=== PATIENT | female | born 1975 | race Caucasian/White ===

== ENCOUNTER 2020-02-06 14:08 | Emergency (ER) | payer SELFPAY ==
[2020-02-06] MEDS ORDERED: MORPHINE SULFATE 10 MG/ML INJ IV ONE ×2 (14:34→17:00)
[2020-02-06] MEDS ORDERED: ONDANSETRON HCL INJ/PF 4 MG/2 ML SDV IV ONE ×2 (14:34→16:30)
--- NOTE | 2020-02-06 14:35 | ER Document Report ---
ED Medical Screen (RME) - General Chief Complaint: Back Pain Stated Complaint: BACK PAIN Primary Care Provider: CHRIS CURIEL [Primary Care Provider] - Follow up as needed Notes: Patient is a 44-year-old white female with a history of diabetes who presents to the emergency department the chief complaint of left mid back pain for the past 3 weeks. States the pain came out of nowhere. States it is constant, has radiated once in the past to the opposite side but mostly stays located to its origination point. States she is been seen in the past over the past 3 weeks by another physician who told her this was likely muscle spasms. She states there is no palliating factors. No specific provocative factors noted. Denies any associated urinary symptoms. Denies any nausea or fever. No abdominal pain. No reported family history of aneurysm or other CAD. I have treated and performed a rapid initial assessment of this patient. A comprehensive ED assessment and evaluation of the patient, analysis of test results and completion of medical decision making process will be conducted by additional ED providers. PHYSICAL EXAMINATION: GENERAL: Appears uncomfortable. Alert and oriented x4. Answers questions appropriately - Related Data Allergies/Adverse Reactions: cortisone Allergy (Verified 02/06/20 14:25) Penicillins Allergy (Verified 02/06/20 14:25) Physical Exam - Vital signs Vitals: Temp Pulse Resp BP Pulse Ox 97.8 F 118 H 20 140/89 H 97 02/06/20 14:12 02/06/20 14:12 02/06/20 14:12 02/06/20 14:12 02/06/20 14:12 Course - Vital Signs Vital signs: Temp Pulse Resp BP Pulse Ox 97.8 F 118 H 20 140/89 H 97 02/06/20 14:12 02/06/20 14:12 02/06/20 14:12 02/06/20 14:12 02/06/20 14:12 Doctor's Discharge - Discharge Referrals: CHRIS CURIEL [Primary Care Provider] - Follow up as needed
[2020-02-06 15:07] LABS: ABSOLUTE EOSINOPHILS # (AUTO) 0.1 10^3/uL (0.0-0.6); ABSOLUTE LYMPHOCYTES (AUTO) 1.4 10^3/uL (0.5-4.7); ABSOLUTE MONOCYTES (AUTO) 0.4 10^3/uL (0.1-1.4); ABSOLUTE NEUT (AUTO) 6.3 10^3/uL (1.7-8.2); BASOPHILS % (AUTO) 0.2 % (0-2); EOSINOPHILS % (AUTO) 1.2 % (0-6); HEMOGLOBIN 12.8 g/dL (12.0-15.5); LYMPHOCYTES % (AUTO) 17.3 % (13-45); MEAN CORPUSCULAR HEMOGLOBIN 32.6 pg (27.0-33.4); MEAN CORPUSCULAR HGB CONC 35.4 g/dL (32.0-36.0); MEAN CORPUSCULAR VOLUME 92 fl (80-97); PLATELET COUNT 331 10^3/uL (150-450); RED BLOOD COUNT 3.91 10^6/uL (3.72-5.28); RED CELL DISTRIBUTION WIDTH 12.4 % (11.5-14.0); SEGMENTED NEUTROPHILS % (AUTO) 76.3 % (42-78); TOTAL CELLS COUNTED % (AUTO) 100 %; WHITE BLOOD COUNT 8.2 10^3/uL (4.0-10.5)
[2020-02-06 15:13] LABS: PROTHROMBIN TIME 12.4 SEC (11.4-15.4)
[2020-02-06 15:29] LABS: ALBUMIN 3.7 g/dL (3.5-5.0); ALKALINE PHOSPHATASE 57 U/L (38-126); ANION GAP 11 (5-19); ASPARTATE AMINO TRANSFERASE 14 U/L (14-36); BILIRUBIN,DIRECT 0.3 mg/dL (0.0-0.4); BILIRUBIN,TOTAL 0.4 mg/dL (0.2-1.3); BLOOD UREA NITROGEN 11 mg/dL (7-20); CALCIUM 10.4 mg/dL (8.4-10.2); CARBON DIOXIDE 23 mmol/L (22-30); CHLORIDE 100 mmol/L (98-107); GLUCOSE 392 mg/dL (75-110); POTASSIUM 4.5 mmol/L (3.6-5.0); TOTAL PROTEIN 6.6 g/dL (6.3-8.2)
[2020-02-06 17:38] LABS: APPEARANCE,URINE CLEAR; BILIRUBIN,URINE NEGATIVE (NEGATIVE); COLOR,URINE YELLOW; GLUCOSE, URINE >=500 mg/dL (NEGATIVE); KETONES,URINE NEGATIVE (NEGATIVE); PROTEIN,URINE NEGATIVE (NEGATIVE); URINE SPECIFIC GRAVITY 1.029; UROBILINOGEN,URINE NEGATIVE mg/dL (<2.0)
--- NOTE | 2020-02-06 17:45 | RADIOLOGY REPORT (SQ) ---
EXAM DESCRIPTION: CT ABD/PELVIS WITH IV ONLY IMAGES COMPLETED DATE/TIME: 02/06/2020 5:33 pm REASON FOR STUDY: left flank/mid back pain COMPARISON: None. TECHNIQUE: CT scan of the abdomen and pelvis performed using helical scanning technique with dynamic intravenous contrast injection. No oral contrast. Images reviewed with lung, soft tissue, and bone w indows. Reconstructed coronal and sagittal MPR images reviewed. Delayed images for evaluation of the urinary system also acquired. All images stored on PACS. All CT scanners at this facility use dose modulation, iterative reconstruction, and/or weight based d osing when appropriate to reduce radiation dose to as low as reasonably achievable (ALARA). [facility]: Dose Right [facility]: CareDose [facility]: Dose Right [facility]: Teradose 4D [facility]: MapMyFitness CONTRAST TYPE AND DOSE: contrast/concentration: Isovue 350.00 mmol/ml; Total Contrast Delivered: 86. 9 ml; Total Saline Delivered: 69.0 ml RENAL FUNCTION: GFR > 60. RADIATION DOSE: CT Rad equipment meets quality standard of care and radiation dose reduction techniq ues were employed. CTDIvol: 9.8 - 14.2 mGy. DLP: 1319 mGy-cm.. LIMITATIONS: None. FINDINGS: LOWER CHEST: No significant findings. LIVER: Normal size. No enhancing masses. No dilated ducts. SPLEEN: Normal size. No focal lesions. PANCREAS: No masses identified. No significant calcifications. No adjacent inflammation or peripancre atic fluid collections. Pancreatic duct not dilated. GALLBLADDER: Surgically absent. ADRENAL GLANDS: No significant masses. RIGHT KIDNEY AND URETER: Scattered small cysts identified. No solid masses identified. No calcified s tones. No hydronephrosis or hydroureter. LEFT KIDNEY AND URETER: No cysts identified. No solid masses identified. No calcified stones. No hydr onephrosis or hydroureter. AORTA AND VESSELS: No aneurysm. No dissection. Renal arteries, SMA, celiac without significant stenos is. RETROPERITONEUM: No bulky retroperitoneal adenopathy. BOWEL AND PERITONEAL CAVITY: No obstruction or inflammatory changes. No free fluid. APPENDIX: Normal. PELVIS: No mass. No free fluid. Unremarkable bladder. ABDOMINAL WALL: No masses. No hernias. BONES: No acute findings. OTHER: No other significant finding. IMPRESSION: NO ACUTE FINDINGS IN THE ABDOMEN OR PELVIS ON CT SCAN WITH IV CONTRAST. TECHNICAL DOCUMENTATION: JOB ID: [id number] [place]-72 Quality ID # [id number]: Final reports with documentation of one or more dose reduction techniques (e.g., Au tomated exposure control, adjustment of the mA and/or kV according to patient size, use of iterative reconstruction technique) 2010 [employer]- All Rights Reserved Reading location - IP/workstation name: [email or web address]
[2020-02-06] MEDS ORDERED: KETOROLAC TROMETHAMINE INJ/PF 30 MG/1 ML SDV IV ONE (18:03)
--- NOTE | 2020-02-06 18:10 | ER Document Report ---
ED General - General Chief Complaint: Back Pain Stated Complaint: BACK PAIN Time Seen by Provider: 02/06/20 16:58 Primary Care Provider: [facility] [Provider Group] - Follow up as needed CHRIS CURIEL [NO LOCAL MD] - Follow up as needed - [facility] Notes: Chief complaint: Left flank pain History of present illness: 44-year-old female noncompliant type II diabetic presents today with 1 month history of worsening intermittent left flank pain. Patient reports past history of treatment by pain management clinic with long- term narcotics for over 13 years. This was apparently stopped about 2 years ago. Patient says about 1 month ago she started to experience recurrent episodes of left flank discomfort which she describes as intermittently sharp and burning and radiating to left shoulder and down to left hip. Denies injury. Denies unaccustomed activity. Denies skin rash. Denies fever chills or dysuria. No associated nausea vomiting. States that she has been evaluated on 4 different occasions for this at [facility] emergency department has had extensive testing and told they can find "nothing wrong" they have advised her at this is likely to be musculoskeletal pain. She was seen there yesterday and started on oral steroids and given AlloDerm. She says none of this is helpful. Patient in the past has taken metformin and Januvia for diabetes. She says she has been out of both medicines for over a month. Says she lost her insurance. States that she has been seen at [facility] in [facility] for primary care but has difficulty getting into see them for appointments because of unavailability of a provider frequently. She does not measure her blood sugars at home. - Related Data Allergies/Adverse Reactions: cortisone Allergy (Verified 02/06/20 14:25) Penicillins Allergy (Verified 02/06/20 14:25) Past Medical History - General Information source: Patient, Friend, [facility] Records - Social History Smoking Status: Never Smoker Frequency of alcohol use: None Drug Abuse: None Lives with: Friend Family History: Reviewed & Not Pertinent Pulmonary Medical History: Reports: Hx Asthma Endocrine Medical History: Reports: Hx Diabetes Mellitus Type 2 Musculoskeletal Medical History: Reports Hx Musculoskeletal Trauma Past Surgical History: Reports: Hx Section, Hx Cholecystectomy, Hx Genitourinary Surgery - D&C, Hx Hysterectomy - partial, Hx Oral Surgery - wisdom teeth, Hx Orthopedic Surgery - right foot, tailbone [facility] Review of Systems - Review of Systems Notes: Constitutional: Negative for fever. HENT: Negative for sore throat. Eyes: Negative for visual changes. Cardiovascular: Negative for chest pain. Respiratory: Negative for shortness of breath. Gastrointestinal: Negative for abdominal pain, vomiting or diarrhea. Genitourinary: Negative for dysuria. Musculoskeletal: As per HPI. Skin: Negative for rash. Neurological: Negative for headaches, weakness or numbness. 10 point ROS negative except as marked above and in HPI. Physical Exam - Vital signs Vitals: Temp Pulse Resp BP Pulse Ox 97.8 F 118 H 20 140/89 H 97 02/06/20 14:12 02/06/20 14:12 02/06/20 14:12 02/06/20 14:12 02/06/20 14:12 - Notes Notes: GENERAL: Middle-age female appearing in no acute distress. SKIN: Good turgor no rashes. HEAD: Normocephalic atraumatic. EYES: PERRLA. EOMI. Conjunctivae and sclerae clear. EARS: CANALS AND TMS CLEAR. NOSE: CLEAR. MOUTH: Moist mucosa. Good dentition. No stridor or edema. No drooling. NECK: Supple. No masses or thyromegaly. No adenopathy. Carotids 2+ without bruits. No JVD. BACK: Symmetrical with mild tenderness left flank area on palpation. Straight leg raising test is negative. CHEST: Respirations unlabored. Breath sounds clear and symmetrical. HEART: Regular rhythm. No murmur gallop or rub. ABDOMEN: Soft nontender without masses, organomegaly or rebound. Bowel sounds normally active. No bruits. GENITALIA: Deferred. EXTREMITIES: No edema. No calf tenderness. Cap refill less than 1.5 seconds. Dorsalis pedis and posterior tibial pulses 3+ and symmetrical. NEUROLOGICAL: GCS 15. Alert and oriented x3. Normal gait. Fluent speech. Cranial nerves II through XII intact. Sensorimotor and cerebellar normal. Normal tone. PSYCHIATRIC: Flat affect. Course - Re-evaluation Re-evalutation: 02/06/20 18:[address] a normal [address] abdomen/pelvis with IV contrast per radiologist. Her comprehensive metabolic profile is remarkable for elevated glucose of 296 and otherwise. Her magnesium is marginally low at 1.5. Urinalysis unremarkable. Midlevel provider had already given this lady some morphine by the time I examined her. I am not sure what we are treating here other than chronic musculoskeletal pain based on current evaluation. Her magnesium is somewhat low. This will be supplemented. I will get her back on her diabetes medicines. I have given her injection of ketorolac IV here and given her some oral ketorolac for home. Encouraged her to continue with medications previously prescribed by Sam Fortune. Needs to get back to see her primary care doctor. She is asking me to prescribe oral narcotics which I do not feel to be appropriate at this time and I explained to her my reasons for this. Is encouraged to see her primary care physician tomorrow. Findings, clinical impression and plan of treatment have been discussed with patient/family. Understanding of current findings and recommendations has been acknowledged by them and there is agreement regarding disposition and follow-up. - Vital Signs Vital signs: Temp Pulse Resp BP Pulse Ox 97.8 F 118 H 20 140/89 H 97 02/06/20 14:12 02/06/20 14:12 02/06/20 14:12 02/06/20 14:12 02/06/20 14:12 - Laboratory Result Diagrams: 02/06/20 14:40 02/06/20 14:40 Laboratory results interpreted by me: 02/06/20 02/06/20 14:40 16:25 Sodium 134.1 L Creatinine 0.47 L Glucose 392 H Calcium 10.4 H Magnesium 1.5 L Urine Glucose (UA) >=500 H Discharge - Discharge Clinical Impression: Chronic musculoskeletal pain left flank Condition: Stable Disposition: HOME, SELF-CARE Additional Instructions: Take prescribed medications. Follow-up with your primary care physician as soon as possible. 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 Prescriptions: Ketorolac Tromethamine [Toradol 10 mg Tablet] 10 mg PO Q6HP PRN 5 Days #20 tablet PRN Reason: Metformin HCl [Glucophage 500 mg Tablet] 500 mg PO BID #60 tablet Sitagliptin Phosphate [Januvia 50 mg Tablet] 50 mg PO DAILY #30 tablet Magnesium Oxide 400 mg PO DAILY 12 Days #12 tablet Referrals: VENEA,NO [NO LOCAL MD] - Follow up as needed [facility] [Provider Group] - Follow up as needed
[2020-02-06] MEDS ORDERED: NORMAL SALINE 1000 ML 1,000 ML IV ONE (18:18)
[2020-02-06] MEDS ORDERED: MAGNESIUM SULFATE/D5W 1 GM/100 ML RTUPB IV ONE (18:18)
[2020-02-06 20:38] VITALS: BP 112/82
== END 2020-02-06 20:40 | disposition home or self-care (01) ==
LOC: ER 14:08
DX: G89.29 Other chronic pain (principal); R10.9 Unspecified abdominal pain; M79.10 Myalgia, unspecified site; E11.9 Type 2 diabetes mellitus without complications; Z88.0 Allergy status to penicillin
CPT/HCPCS: 99285; 96375; 96365; 36415; 83690; 83735; 85025; 85610; 80053; 81001; 74177; J1885; J2270; J3475; J2405; J7030